=== PATIENT | male | born 1990 | race African-American/Black ===

== ENCOUNTER 2017-01-23 14:55 | Emergency (ER) | payer BC ==
--- NOTE | ~2017-01-23 | CR63 ---
[facility] A Service of [facility] RADIOLOGY TEXT RESULTS PATIENT: JOSSELIN BACA LOCATION: CFTX : 90 UNIT #: [id number] AGE: [address]: Maria Willett APRN SEX: M ORDER DR: [id number] [facility] [address] [place], [place] [address] [id number] E MR#: [id number] Acc #: [id number] NAME: JOSSELIN BACA : 1990 SEX: M STUDY DATE/TIME: 01/23/2017 15:51 UNIT: [facility] ROOM: STUDY DESCRIPTION: CR Chest 2 View Attending Physician: Marai Willett A.P.R.N. Ordering Physician: Shakir Peck M.D. MEDICAL IMAGING REPORT This report is preliminary unless electronic signature is present EXAM Chest x-ray 01/23 HISTORY Occasional chest pain, worse with inspiration. Symptoms for 1 week. FINDINGS PA and lateral examination of the chest upright shows a good expansion of the parenchyma with a normal distribution of the pulmonary vascularity. There is no indication of congestion, effusion, infiltrate, tumor, or nodular density. The pleural reflections and diaphragmatic contours are normal. The cardiac silhouette and mediastinal anatomy is within normal limits. IMPRESSION Normal chest. Dictated by... Jostin Oden Jr., M.D. THIS IS AN ELECTRONICALLY VERIFIED REPORT Jostin Oden Jr., M.D. at 01/23/2017 7:01 PM RLK/brandon TD: 01/23/2017 18:57 JOB #: [id number] MEDICAL IMAGING REPORT Page 1 of 1 COPY
== END 2017-01-23 16:20 | disposition home or self-care (01) ==
LOC: CED 14:55 → CFTX 14:55
DX: N63 Unspecified lump in breast (principal)
CPT/HCPCS: 71020; 99283